=== PATIENT | female | born 1985 | race Caucasian/White ===

== ENCOUNTER 2018-05-04 07:00 | Day surgery (SDC) | payer OTHER ==
[2018-05-03 14:49] VITALS: BMI 28.3
[2018-05-04] MEDS ORDERED: CEFAZOLIN 1 GM in DEXTROSE 5%-WATER - 50 ML IVPB ONE (08:38)
--- NOTE | 2018-05-04 08:51 | HP ---
Admitting History and Physical - Admission Chief Complaint: Desires permanent sterilization History of Present Illness: 32 yo desires permanent sterilization. She's pre op for laparoscopic tubal ligation. History Source: Patient Limitations to Obtaining History: No Limitations - Past Medical History ...LMP: 05/27/17 ...LMP Comment: 2 months post ...: No ...: 3 ...Para: 2 - Past Surgical History Past Surgical History: Yes: - Smoking History Smoking history: Never smoked Have you smoked in the past 12 months: No - Alcohol/Substance Use Hx Alcohol Use: No History of Substance Use: reports: None - Social History Usual Living Arrangement: Yes: With Spouse History of Recent Travel: No Home Medications - Allergies Allergies/Adverse Reactions: Allergies Allergy/AdvReac Type Severity Reaction Status Date / Time No Known Allergies Allergy Verified 05/03/18 14:44 - Home Medications Home Medications: Ambulatory Orders Tramadol HCl 50 mg PO Q6H PRN #30 tablet MDD 4 05/04/18 Family Disease History - Family Disease History Family History: Unremarkable Review of Systems - Review of Systems Constitutional: reports: No Symptoms Eyes: reports: No Symptoms HENT: reports: No Symptoms Neck: reports: No Symptoms Cardiovascular: reports: No Symptoms Respiratory: reports: No Symptoms Gastrointestinal: reports: No Symptoms Genitourinary: reports: No Symptoms Breasts: reports: No Symptoms Reported Musculoskeletal: reports: No Symptoms Integumentary: reports: No Symptoms Neurological: reports: No Symptoms Endocrine: reports: No Symptoms Hematology/Lymphatic: reports: No Symptoms Psychiatric: reports: No Symptoms Pain Intensity: 0 Physical Examination Vital Signs: Vital Signs Temperature 98.1 F 05/04/18 07:07 Pulse Rate 60 05/04/18 07:07 Respiratory Rate 20 05/04/18 07:07 Blood Pressure 109/68 05/04/18 07:07 O2 Sat by Pulse Oximetry (%) 100 05/04/18 07:09 Constitutional: Yes: Well Nourished Eyes: Yes: Conjunctiva Clear HENT: Yes: Atraumatic Neck: Yes: Supple Cardiovascular: Yes: Regular Rate and Rhythm Respiratory: Yes: Regular Gastrointestinal: Yes: Normal Bowel Sounds Neurological: Yes: Alert, Oriented ...Motor Strength: WNL Psychiatric: Yes: Alert, Oriented Problem List - Problems (1) Multiparity Code(s): Z64.1 - PROBLEMS RELATED TO MULTIPARITY Assessment/Plan Multiparity Pre op for tubal ligation Consent signed Anesthesia to see patient
--- NOTE | 2018-05-04 09:55 | OP ---
Operative Note - Note: Operative Date: 05/04/18 Pre-Operative Diagnosis: Multiparity Operation: Laparoscopic bilateral tubal ligation Findings: Normal pelvis Surgeon: Lisa Pryor Fish Cutting Machine Operator: Omega Cameron Specimens Removed: None Estimated Blood Loss (mls): 0
--- NOTE | 2018-05-04 10:11 | SURG ---
Surgery Assistant Director Of Admissions Note Assistant Director Of Admissions: Omega Cameron PA-C Date of Service: 05/04/18 Diagnosis: Multiparity, elective sterilization Procedure: Laparoscopic bilateral tubal ligation I was present for the entirety of the operative procedure. For further detail, please refer to operative report. Visit type - Case Type Case Type: Scheduled - New patient This patient is new to me today: Yes Date on this admission: 05/04/18
[2018-05-04 10:35] VITALS: TEMP 97.8
[2018-05-04] MEDS ORDERED: ONDANSETRON 4 MG/2 ML VIAL IVPUSH PRN (11:08)
[2018-05-04] MEDS ORDERED: oxyCODONE HCL 5 MG TABLET PO PRN ×2 (11:08)
[2018-05-04] MEDS ORDERED: LACTATED RINGERS SOLUTION 1,000 ML IV SCH (11:15)
[2018-05-04 13:43] VITALS: BP 95/50; PULSE 52
--- NOTE | 2018-05-28 19:18 | OP ---
DATE OF OPERATION: 05/04/2018 PREOPERATIVE DIAGNOSIS: Multiparity, desires permanent sterilization. POSTOPERATIVE DIAGNOSIS: Multiparity, desires permanent sterilization. PROCEDURE: Laparoscopic bilateral tubal ligation. SURGEON: Lisa Pryor MD EXTRUDER: KANDY Mcintyre ANESTHESIA: General. COMPLICATIONS: None. ESTIMATED BLOOD LOSS: Less than 5 mL. DESCRIPTION OF PROCEDURE: The patient was taken to the operating room where general anesthesia was administered. The patient was then placed in lithotomy position. She was then prepped and draped in proper sterile fashion. A weighted speculum was placed in the vagina. The anterior lip of the cervix was grasped with a single-tooth tenaculum. A HUMI uterine manipulated was then advanced into the uterus to provide a means to manipulate the uterus. The speculum was then removed from the vagina. Attention was then turned to the patient's abdomen where a 5-mm skin incision was made in the umbilical fold. The Veress needle was carefully introduced into the peritoneal cavity while tenting the abdominal wall. Intraperitoneal placement was confirmed by use of a water-filled syringe and dropped in for insufflation of the CO2 gas. The trocar and sleeve were then advanced without difficulty into the abdomen where intra-abdominal placement was confirmed by the laparoscope. Pneumoperitoneum was obtained with 3 L of CO2 gas, and the 5-mm trocar and sleeve were then advanced without difficulty into the abdomen where intra-abdominal placement was confirmed by the laparoscope. The 2nd skin incision was made 2 cm above the pubic symphysis in the midline. The 2nd trocar and sleeve were advance under direct visualization. A survey of the patient's pelvis and abdomen revealed completely normal pelvis. Then the Kleppinger was used to grab a segment of the right tube. This segment of the right tube was then cauterized in 3 contiguous areas until complete blanching was observed. This procedure was performed on the left side. Then the instruments were removed. The patient was taken out of lithotomy position. She was taken to PACU in stable condition. Davide [id number]
== END 2018-05-04 14:44 | disposition home or self-care (01) ==
LOC: JASU-SURG 07:00
PROVIDERS: ATTEND Obstetrics & Gynecology
PROC: 0U574ZZ Destruction of Bilateral Fallopian Tubes, Percutaneous Endoscopic Approach (ICD-10-PCS; principal; 2018-05-04 08:30)
DX: Z30.2 Encounter for sterilization (principal)
CPT/HCPCS: 94760

== ENCOUNTER 2018-05-09 14:21 | Observation (INO) | payer OTHER ==
[2018-05-09 14:25] VITALS: BMI 28.3
--- NOTE | 2018-05-09 16:40 | PDOC ---
Attending Attestation - [facility] HPI: 05/09/18 18:42 The patient is a 32 year old female, with no significant past medical history, who presents to the ED complaining of abdominal pain, fever and cough. She describes her abdominal pain as localized in the suprapubic region, ranging from mild to moderate, without radiation. She notes that she recently had tubal ligation surgery (4 days ago). She states her fever has been as high as 100.1. She also notes that she has noticed that her urine is more red than it usually is. The patient denies chest pain, shortness of breath, headache and dizziness. Denies chills, nausea, vomiting, diarrhea or constipation. Denies dysuria, frequency, urgency. Allergies: None Past surgical history: Tubal ligation Social History: No alcohol, tobacco or drug use reported - Physicial Exam PE: 05/09/18 18:47 Constitutional: Awake, alert, oriented. No acute distress. Head: Normocephalic. Atraumatic Eyes: PERRL. EOMI. Conjunctivae are not pale. ENT: Mucous membranes are moist and intact. Posterior pharynx without exudates or erythema. Uvula midline. Neck: Supple. Full ROM. No lymphadenopathy. Cardiovascular: (+) Tachycardia. Regular rhythm. S1, S2 regular. Distal pulses are 2+ and symmetric. Pulmonary/Chest: No evidence of respiratory distress. Clear to auscultation bilaterally No wheezing, rales or rhonchi. Abdominal: (+) Incision site in the umbilicus and the suprapubic region. Ecchymosis and induration noted on the incision site by the suprapubic region. No drainage. Tenderness over the pelvis. Soft and non-distended. No rebound, guarding or rigidity. No organomegaly. No palpable masses. Good bowel sounds. Back: No CVA tenderness. Musculoskeletal: No edema. No cyanosis. No clubbing. Full range of motion in all extremities. Nocalf tenderness. Radial/pedal pulses are intact and 2+ bilaterally Skin: Skin is warm and dry. No petechiae. No purpura. Neurological: Alert and oriented to person, place, and time. Cranial nerves II -XII are grossly intact. Normal speech. Strength is grossly symmetric. No sensory deficits. Psychiatric: Good eye contact. Normal interaction, affect and behavior. <Beka Espino - Last Filed: 05/09/18 18:42> - Resident Resident Name: Rico Joy - ED Attending Attestation I have performed the following: I have examined & evaluated the patient, The case was reviewed & discussed with the resident, I agree w/resident's findings & plan, Exceptions are as noted - Medical Decision Making 05/09/18 16:40 I, Dr. Janene Velasquez, DO, attest that this document has been prepared under my direction and personally reviewed by me in its entirety. I further attest, that it accurately reflects all work, treatment, procedures and medical decision -making performed by me. 05/09/18 17:58 a/p: 32yo female who is 5 days post-op from a tubal ligation with Dr. Pryor -pt with fever and lower abd pain and cough -pt with swelling, ecchymosis to lower abd incision without warmth or drainage, but with induration -will send labs, ct abd/pelvis, ua, ucx, cxr -will discuss with Dr. Pryor pending results -discussed the plan with the patient who agrees with the plan 05/09/18 22:[address] Pryor pt with hematoma 10x8cm accepts pt to obs 05/09/18 22:28 pt updated and agrees with the plan <Janene Velsaquez - Last Filed: 05/09/18 22:28> Discharge Disposition <Beka Espino - Last Filed: 05/09/18 18:42> - Discharge Dispostion Last Admission D/C Date: 02/14/18 Decision to Admit order: Yes <Janene Velasquez - Last Filed: 05/09/18 22:28> - Diagnosis Post-op bleeding - Discharge Dispostion Condition at time of disposition: Fair - Referrals Referrals: Gasper Wiseman MD [Primary Care Provider] - - Patient Instructions - Post Discharge Activity
--- NOTE | 2018-05-09 16:59 | PDOC ---
History of Present Illness - General Chief Complaint: Weakness Stated Complaint: WEAKNESS, TUBAL LIGATION LAST MONDAY Time Seen by Provider: 05/09/18 16:38 - History of Present Illness Initial Comments: 05/09/18 18:12 32 yo F with no sig pmh is here after a recent laparoscopic tubal ligation surgery 4 days ago with suprapubic abdominal pain, vaginal pain, headaches, a cough, and myalgias. Her abdominal pain and other problems began this morning. This morning she noticed that her urine was more red than usual. She has a fever of 100.1 in the ER and says she started feeling warm today. She endorses dysuria, urgency, and urinary retention. She has been able to make bowel movements normally since her procedure. She denies chest pain, SOB, difficulty breathing, or other abdominal pain. Past History - Past Medical History Allergies/Adverse Reactions: Allergies Allergy/AdvReac Type Severity Reaction Status Date / Time No Known Allergies Allergy Verified 05/09/18 14:25 Home Medications: Ambulatory Orders Tramadol HCl 50 mg PO Q6H PRN #30 tablet MDD 4 05/04/18 Asthma: No Cancer: No Cardiac Disorders: No CVA: No COPD: No Diabetes: No HTN: No Seizures: No Thyroid Disease: No - Surgical History Abdominal Surgery: Yes (tubal ligation 04/2018) - Reproductive History Para: 1 - Immunization History Immunization Up to Date: Yes - Suicide/Smoking/Psychosocial Hx Smoking History: Never smoked Have you smoked in the past 12 months: No Information on smoking cessation initiated: Yes Hx Alcohol Use: No Drug/Substance Use Hx: No Substance Use Type: None Hx Substance Use Treatment: No Review of Systems - Review of Systems Comments:: 05/09/18 18:18 CONSTITUTIONAL: Positive: Fever, chills Absent: diaphoresis, generalized weakness, malaise, loss of appetite HEENT: Absent: rhinorrhea, nasal congestion, throat pain, throat swelling, difficulty swallowing, mouth swelling, ear pain, eye pain, visual Changes CARDIOVASCULAR: Absent: chest pain, syncope, palpitations, irregular heart rate, lightheadedness , peripheral edema RESPIRATORY: Positive: Cough Absent: shortness of breath, dyspnea with exertion, orthopnea, wheezing, stridor , hemoptysis GASTROINTESTINAL: Positive: Abdominal pain Absent: abdominal distension, nausea, vomiting, diarrhea, constipation, melena, hematochezia GENITOURINARY: Positive: dysuria, urgency, hematuria Absent: frequency, hesitancy, flank pain, genital pain MUSCULOSKELETAL: Positive: Myalgia Absent: arthralgia, joint swelling SKIN: Absent: rash, itching, pallor HEMATOLOGIC/IMMUNOLOGIC: Absent: easy bleeding, easy bruising, lymphadenopathy, frequent infections ENDOCRINE: Absent: unexplained weight gain, unexplained weight loss, heat intolerance, cold intolerance NEUROLOGIC: Positive: headache Absent: focal weakness or paresthesias, dizziness, unsteady gait, seizure, mental status changes, bladder or bowel incontinence PSYCHIATRIC: Absent: anxiety, depression, suicidal or homicidal ideation, hallucinations. 05/09/18 18:35 *Physical Exam - Vital Signs Last Vital Signs Temp Pulse Resp BP Pulse Ox 100.1 F H 101 H 18 119/75 100 05/09/18 14:23 05/09/18 14:23 05/09/18 14:23 05/09/18 14:23 05/09/18 14:23 - Physical Exam Comments: 05/09/18 18:38 Pelvic exam: There is no blood in the vaginal vault. The cervix is not erythematous. There is no cervical discharge or active cervical bleeding. There is no CMT. There is no adnexal tenderness. There is significant suprapubic tenderness on bimanual exam. GENERAL: Well developed, well nourished. Awake and alert. No acute distress. HEENT: Normocephalic, atraumatic. PERRLA, EOMI. No conjunctival pallor. Sclera are non- icteric. Moist mucous membranes. Oropharynx is clear. NECK: Supple. Full ROM. No JVD. No thyromegaly. No lymphadenopathy. CARDIOVASCULAR: Tachycardic, regular rhythm. No murmurs, rubs, or gallops. Distal pulses are 2 + and symmetric. PULMONARY: No evidence of respiratory distress. Lungs clear to auscultation bilaterally. No wheezing, rales or rhonchi. ABDOMINAL: There is significant suprapubic pain to touch. She has two incisions. The navel incision looks clear. The lower incision is mildly fluctuant, and has come black and blue discoloration. The rest of the abdomen is soft, Non-tender. Non-distended. No rebound or guarding. No organomegaly. Normoactive bowel sounds. MUSCULOSKELETAL Normal range of motion at all joints. No bony deformities or tenderness. No CVA tenderness. EXTREMITIES: No cyanosis. No clubbing. No edema. No calf tenderness. SKIN: Warm and dry. Normal capillary refill. No rashes. No jaundice. NEUROLOGICAL: Alert, awake, appropriate. Cranial nerves 2-12 intact. Normal speech. Gait is normal without ataxia. PSYCHIATRIC: Cooperative. Good eye contact. Appropriate mood and affect. ED Treatment Course - LABORATORY CBC & Chemistry Diagram: 05/09/18 17:46 05/09/18 17:46 Medical Decision Making - Medical Decision Making 05/09/18 18:43 32 yo F here after a tubal ligation 4 days ago with fever and suprapubic abdominal tenderness. The surgical site is painful to touch. We are concerned for a post op infection. Plan: Cbc, Cmp, hcg, ua/uc, lactic, TVUS, CTAP w contrast, fluids, APAP, re- assess. 05/09/18 18:49 The patient feels significantly better after acetaminophen. CTAP showed minimal pneumoperitoneum which is to be expected bc of her recent laparoscopic surgery. CTAP also showed a hematoma which is pressing on the bladder and uterus which is likely the source of her suprapubic pain. Plan: onur Jain Dr. regarding her recent surgery, Re-assess. Plan is to admit her for Obs 05/09/18 21:36 05/10/18 12:12 *DC/Admit/Observation/Transfer Diagnosis at time of Disposition: Post-op bleeding - Discharge Dispostion Condition at time of disposition: Fair - Referrals - Patient Instructions - Post Discharge Activity
[2018-05-09] MEDS ORDERED: ACETAMINOPHEN 1000 MG/100 ML VIAL (NON FORMULARY) IVPB ONE (17:31)
[2018-05-09] MEDS ORDERED: SODIUM CHLORIDE 0.9% 500 ML INFUS.BAG IV ONE (17:35)
[2018-05-09] MEDS ORDERED: ACETAMINOPHEN INJECTION 100 ML IVPB ONE (17:51)
[2018-05-09 17:57] LABS: BASO % 0.5 % (0-2.0); EOS % 0.1 % (0-4.5); HEMOGLOBIN 11.5 GM/dL (10.7-15.3); LYMPH % 17.6 % (8-40); MCH 29.4 pg (25.7-33.7); MCHC 33.8 g/dl (32.0-36.0); MEAN CELL VOLUME 87.2 fl (80-96); MEAN PLT VOLUME 10.3 fl (7.5-11.1); NEUT % 69.8 % (42.8-82.8); PLATELET COUNT 201 K/MM3 (134-434); RBC 3.91 M/mm3 (3.60-5.2); RDW 14.3 % (11.6-15.6); WHITE BLOOD COUNT 8.1 K/mm3 (4.0-10.0)
[2018-05-09 18:06] LABS: URINE APPEARANCE CLEAR; URINE BILIRUBIN NEGATIVE (<2.0 mg/dL); URINE COLOR AMBER; URINE GLUCOSE (UA) NEGATIVE (NEGATIVE); URINE KETONE 1+ (NEGATIVE); URINE LEUK ESTERASE NEGATIVE (NEGATIVE); URINE NITRITE NEGATIVE (NEGATIVE)
[2018-05-09 18:14] LABS: URINE PROTEIN 1+ (NEGATIVE)
[2018-05-09 18:15] LABS: EPI CELLS RARE /HPF (FEW); URINE MUCUS MANY
[2018-05-09 18:23] LABS: ALBUMIN 4.1 g/dl (3.4-5.0); ANION GAP 10 MMOL/L (8-16); BILIRUBIN,TOTAL 1.5 mg/dL (0.2-1.0); BLOOD UREA NITROGEN 13 mg/dL (7-18); CALCIUM 8.8 mg/dL (8.5-10.1); CHLORIDE 104 mmol/L (98-107); CO2 25 mmol/L (21-32); CREATININE 0.6 mg/dL (0.55-1.02); GLUCOSE,RANDOM 128 mg/dL (74-106); POTASSIUM 3.4 mmol/L (3.5-5.1); SGOT/AST 12 U/L (15-37); SGPT/ALT 45 U/L (13-61); SODIUM 139 mmol/L (136-145); TOT PROT 7.8 g/dl (6.4-8.2)
[2018-05-09 18:25] LABS: ALK PHOS 104 U/L (45-117)
[2018-05-09] MEDS ORDERED: PIPERACILLIN/TAZOB 3.375 GM 3.375 GM in DEXTROSE 5%-WATER - 50 ML IVPB ONE (20:19)
[2018-05-09] MEDS ORDERED: PIPERACILLIN/TAZOB 3.375 GM 3.375 GM/50 ML BAG IVPB ONE (20:43)
[2018-05-10] MEDS ORDERED: ACETAMINOPHEN 325 MG TABLET (FP) PO PRN (02:46)
[2018-05-10] MEDS ORDERED: IBUPROFEN 600 MG TABLET (FP) PO PRN (02:47)
--- NOTE | 2018-05-10 02:52 | HP ---
Admitting History and Physical - Admission Chief Complaint: Abdominal pain History of Present Illness: 32 yo F with no sig pmh is here after a recent Laparoscopic tubal ligation surgery 4 days ago with suprapubic abdominal pain, vaginal pain, headaches, a cough, and myalgias. Her abdominal pain and other problems began this morning. This morning she noticed that her urine was more red than usual. She has a fever of 100.1 in the ER and says she started feeling warm today. Patient admitted for observation. Limitations to Obtaining History: No Limitations - Past Medical History ...LMP: 05/27/17 ...: No ...: 3 ...Para: 2 - Past Surgical History Past Surgical History: Yes: Additional Past Surgical History: Tubal ligation - Smoking History Smoking history: Never smoked Have you smoked in the past 12 months: No - Alcohol/Substance Use Hx Alcohol Use: No History of Substance Use: reports: None - Social History History of Recent Travel: No Home Medications - Allergies Allergies/Adverse Reactions: Allergies Allergy/AdvReac Type Severity Reaction Status Date / Time No Known Allergies Allergy Verified 05/09/18 14:25 - Home Medications Home Medications: Ambulatory Orders Tramadol HCl 50 mg PO Q6H PRN #30 tablet MDD 4 05/04/18 Review of Systems - Review of Systems Constitutional: reports: Fever Eyes: reports: No Symptoms HENT: reports: No Symptoms Neck: reports: No Symptoms Cardiovascular: reports: No Symptoms Respiratory: reports: No Symptoms Gastrointestinal: reports: No Symptoms Genitourinary: reports: Pain Breasts: reports: No Symptoms Reported Musculoskeletal: reports: Other (Body ache) Neurological: reports: No Symptoms Endocrine: reports: No Symptoms Hematology/Lymphatic: reports: No Symptoms Psychiatric: reports: No Symptoms Pain Intensity: 2 Physical Examination Vital Signs: Vital Signs Temperature 99.2 F 05/10/18 02:00 Pulse Rate 82 05/10/18 02:00 Respiratory Rate 18 05/10/18 02:00 Blood Pressure 109/63 05/10/18 02:00 O2 Sat by Pulse Oximetry (%) 100 05/09/18 14:23 Constitutional: Yes: No Distress Eyes: Yes: Conjunctiva Clear HENT: Yes: Atraumatic Neck: Yes: Supple Cardiovascular: Yes: Regular Rate and Rhythm Respiratory: Yes: Regular Gastrointestinal: Yes: Normal Bowel Sounds ...Rectal Exam: Yes: WNL Renal/: Yes: WNL Musculoskeletal: Yes: WNL Neurological: Yes: Alert, Oriented ...Motor Strength: WNL Psychiatric: Yes: Alert, Oriented Labs: CBC, BMP 05/09/18 17:46 05/09/18 17:46 Problem List - Problems (1) Dysuria Code(s): R30.0 - DYSURIA (2) Fever Code(s): R50.9 - FEVER, UNSPECIFIED Qualifiers: Fever type: unspecified Qualified Code(s): R50.9 - Fever, unspecified Assessment/Plan Body ache Dysuria Fever Admit for observation
[2018-05-10 09:20] VITALS: BP 100/61; PULSE 84; TEMP 99
--- NOTE | 2018-05-10 10:49 | PN ---
Progress Note (short form) - Note Progress Note: Patient re-evaluated, doing well. No complaints except for urinary symptoms. She tolerates regular diet. She's afebrile Patient will be discharge home with Ciprofloxacin. She will see a Urologist as outpatient. Problem List - Problems (1) Dysuria Code(s): R30.0 - DYSURIA (2) Fever Code(s): R50.9 - FEVER, UNSPECIFIED Qualifiers: Fever type: unspecified Qualified Code(s): R50.9 - Fever, unspecified
--- NOTE | 2018-05-10 12:46 | DS ---
Physical Examination Vital Signs: Vital Signs Temperature 99 F 05/10/18 09:19 Pulse Rate 84 05/10/18 09:19 Respiratory Rate 20 05/10/18 09:19 Blood Pressure 100/61 05/10/18 09:19 O2 Sat by Pulse Oximetry (%) 100 05/09/18 14:23 Constitutional: Yes: No Distress Eyes: Yes: Conjunctiva Clear HENT: Yes: Atraumatic Neck: Yes: Supple Cardiovascular: Yes: Regular Rate and Rhythm Respiratory: Yes: Regular Gastrointestinal: Yes: Normal Bowel Sounds ...Rectal Exam: Yes: WNL Renal/: Yes: WNL Breast(s): Yes: WNL Musculoskeletal: Yes: WNL Extremities: Yes: WNL Integumentary: Yes: WNL Wound/Incision: Yes: Well Approximated Neurological: Yes: Alert, Oriented ...Motor Strength: WNL Psychiatric: Yes: Alert, Oriented Labs: CBC, BMP 05/09/18 17:46 05/09/18 17:46 Discharge Summary Reason For Visit: POSTOPERATIVE HEMORRHAGE Current Active Problems Dysuria (Acute) Fever (Acute) Post-op bleeding (Acute) Procedures: Principal: Observation Hospital Course: Patient admitted for observation after presented to ER for body ache 4 days after Laparoscopic tubal ligation. Patient was observed and felt better after IV fluid. Condition: Good - Instructions Referrals: Gasper Wiseman MD [Primary Care Provider] - - Home Medications Comprehensive Discharge Medication List: Ambulatory Orders Tramadol HCl 50 mg PO Q6H PRN #30 tablet MDD 4 05/04/18
[2018-05-10] MEDS ORDERED: CEPHALEXIN MONOHYDRATE 500 MG CAPSULE (UD) PO SCH (18:00)
== END 2018-05-10 13:30 | disposition home or self-care (01) ==
LOC: JER 14:21 → JERBED 22:11 → UNDOADMOB 23:55 → JERBED 23:55 → J3W 05-10 01:35
PROVIDERS: ADMIT Obstetrics & Gynecology; ATTEND Obstetrics & Gynecology
PROC: 3E03329 Introduction of Other Anti-infective into Peripheral Vein, Percutaneous Approach (ICD-10-PCS; principal; 2018-05-09)
PROC: 3E0337Z Introduction of Electrolytic and Water Balance Substance into Peripheral Vein, Percutaneous Approach (ICD-10-PCS; 2018-05-09)
PROC: 3E033NZ Introduction of Analgesics, Hypnotics, Sedatives into Peripheral Vein, Percutaneous Approach (ICD-10-PCS; 2018-05-09)
DX: N99.820 Postprocedural hemorrhage of a genitourinary system organ or structure following a genitourinary system procedure (principal); R30.0 Dysuria; R50.9 Fever, unspecified; Z98.51 Tubal ligation status
CPT/HCPCS: 36415; 71046-TC-FY; 74177-TC; 80053; 81003; 81015; 83605; 84702; 85025; 87086; 96365; 96375; 99284-25; G0378; J0131